=== PATIENT | female | born 1990 | race American Indian/Alaskan Native ===

== ENCOUNTER 2017-12-17 22:16 | Emergency (ER) | payer MEDICAID, OTHER ==
[2017-12-17 22:17] VITALS: BMI 32.3
[2017-12-18 01:26] LABS: BASO # 0.02 K/mm3 (0.0-2.0); BASO % 0.3 % (0.0-3.0); EOS # 0.1 (0.0-0.7); EOS % 1.6 % (1.5-5.0); GRAN # 4.31 (1.4-6.5); GRAN % 62.5 % (50.0-68.0); LYMPH % 28.9 % (22.0-35.0); MEAN CELL VOLUME 64.3 fl (80.0-105.0); MEAN CORPUSCULAR HEMOGLOBIN 17.1 pg (25.0-35.0); MEAN CORPUSCULAR HGB CONC 26.6 g/dl (31.0-37.0); MONO # 0.5 (0.1-0.6); MONO % 6.7 % (1.0-6.0); PLATELET COUNT 333 10^3/uL (120.0-450.0); RED CELL DISTRIBUTION WIDTH 21.8 % (11.5-14.5); WHITE BLOOD COUNT 6.9 10^3/ul (4.5-11.0)
--- NOTE | 2017-12-18 01:27 | ED PDOC ---
Arrival/HPI - General Chief Complaint: Female Genitourinary Time Seen by Provider: 12/17/17 23:44 Historian: Patient - History of Present Illness Narrative History of Present Illness (Text): 12/18/17 01:26 A 27 year old female presents to the emergency department complaining of vaginal bleeding for the past three weeks. Reports one in the past. Notes she hasn't taken a test recently. Patient is not taking any control pills. Patient denies any other complaints at this time. Time/Duration: Other (3 weeks) Symptom Onset: Sudden Symptom Course: Unchanged Activities at Onset: Rest Context: Home Past Medical History - Provider Review Nursing Documentation Reviewed: Yes - Infectious Disease Hx of Infectious Diseases: None - Tetanus Immunization Tetanus Immunization: Unknown - Past Medical History Past Medical History: No Previous - Hematological/Oncological Hx Blood Transfusions: No Hx Blood Transfusion Reaction: No - Musculoskeletal/Rheumatological Hx Falls: No - Psychiatric Hx Depression: No Hx Substance Use: No - Past Surgical History Past Surgical History: No Previous - Anesthesia Hx Anesthesia: No - Suicidal Assessment Feels Threatened In Home Enviroment: No Family/Social History - Physician Review Nursing Documentation Reviewed: Yes Family/Social History: No Known Family HX Smoking Status: Current Some Days Smoker Hx Alcohol Use: No Hx Substance Use: No Hx Substance Use Treatment: No Allergies/Home Meds Allergies/Adverse Reactions: Allergies No Known Allergies Allergy (Verified 12/17/17 23:42) Review of Systems - Physician Review All systems were reviewed & negative as marked: Yes - Review of Systems Constitutional: absent: Fevers Genitourinary Female: Vaginal Bleeding Physical Exam Vital Signs Reviewed: Yes Vital Signs Temp Pulse Resp BP Pulse Ox 12/18/17 04:19 99.2 F 90 17 106/63 12/18/17 03:56 98.5 F 91 H 17 113/68 12/17/17 23:44 98.4 F 87 18 106/54 L 99 Temperature: Afebrile Blood Pressure: Hypotensive Pulse: Regular Respiratory Rate: Normal Appearance: Positive for: Well-Appearing, Non-Toxic, Comfortable Pain Distress: None Mental Status: Positive for: Alert and Oriented X 3 - Systems Exam Head: Present: Atraumatic, Normocephalic Pupils: Present: PERRL Extroacular Muscles: Present: EOMI Conjunctiva: Present: Normal Mouth: Present: Moist Mucous Membranes Neck: Present: Normal Range of Motion Respiratory/Chest: Present: Clear to Auscultation, Good Air Exchange. No: Respiratory Distress, Accessory Muscle Use Cardiovascular: Present: Regular Rate and Rhythm, Normal S1, S2. No: Murmurs Abdomen: Present: Normal Bowel Sounds. No: Tenderness, Distention, Peritoneal Signs Genitourinary/Pelvic Exam: Present: Other (closed cervix; not blotted, pooling blood, dark red) Back: Present: Normal Inspection Upper Extremity: Present: Normal Inspection. No: Cyanosis, Edema Lower Extremity: Present: Normal Inspection. No: Edema Neurological: Present: GCS=15, CN II-XII Intact, Speech Normal Skin: Present: Warm, Dry, Normal Color. No: Rashes Psychiatric: Present: Alert, Oriented x 3, Normal Insight, Normal Concentration Medical Decision Making ED Course and Treatment: 12/18/17 01:25 Impression: A 27 year old female with vaginal bleeding. Plan: -- Urinalysis -- labs -- Reassess and disposition Prior Visits: Notes and results from previous visits were reviewed. Patient was last seen in the emergency department on 06/06/15 for evaluation of b/l lower back pain. Progress Notes: 12/18/17 03:[address] Gordon, who refused to accept patient, doesn't feel comfortable treating patient without INTERIOR DESIGN TEACHER support. Recommends patient to go to [facility]. 12/18/17 03:[address] Mora, CORPORATE PLANNING MANAGER, who stated patient doesn't have to be admitted to the hospital. Recommends patient to be discharged with Provera, as long US showed a dysfunctional uterine bleeding, and for patient to follow up with INTERIOR DESIGN TEACHER as outpatient. US Pelvis Complete, Transabdominal FINDINGS: Uterus: Measures 9.7 x 5.4 x 6.1 cm. Endometrial stripe is abnormally thickened , measuring 2.7 cm, and appears heterogeneous. There is mild increased flow/vascularity in the endometrial stripe, with no focal measurable masses seen. Multiple Nabothian cysts noted in the cervix. Right ovary: Within normal limits in appearance, containing multiple follicles. Measures 4.6 x 3.4 x 2.7 cm. Flow seen in the right ovary on color and Doppler imaging, with no evidence of torsion. Left ovary: Within normal limits in appearance, containing multiple follicles. Measures 4.0 x 3.3 x 3.4 cm. Flow seen in the left ovary on color and Doppler imaging, with no evidence of torsion. Cul-de-sac: No free fluid. IMPRESSION: Thickened, heterogeneous endometrium. This could be due to blood products/clot in the endometrial canal. Mild increased flow in the endometrium. This finding can be seen with an endometrial polyp. If the patient is , retained products of conception could also have this appearance. Findings require clinical correlation. Normal ovaries. See above for remaining findings. Dictated and Authenticated by: Davida Knott MD 12/18/2017 4:00 AM Eastern Time ([place] & [place]) - Lab Interpretations Lab Results: 12/18/17 00:58 12/18/17 00:58 Lab Results 12/18/17 01:45: Blood Type Confirm O POSITIVE 12/18/17 00:58: Blood Type O POSITIVE, Antibody Screen Negative, Crossmatch See Detail, BBK History Checked No verified bt 12/18/17 00:58: Beta HCG, Quant < 2.39 12/18/17 00:58: Sodium 139, Potassium 4.3, Chloride 107, Carbon Dioxide 25, Anion Gap 12, BUN 14, Creatinine 0.8, Est GFR ( Amer) > 60, Est GFR (Non- Af Amer) > 60, Random Glucose 89, Calcium 8.8, Total Bilirubin 0.4, AST 33, ALT 22, Alkaline Phosphatase 80, Total Protein 7.4, Albumin 3.7, Globulin 3.7, Albumin/Globulin Ratio 1.0 L 12/18/17 00:58: Urine Color Red, Urine Appearance Sl cloudy, Urine pH 7.0, Ur Specific [place] 1.025, Urine Protein 100 H, Urine Glucose (UA) Negative, Urine Ketones Negative, Urine Blood Large H, Urine Nitrate Negative, Urine Bilirubin Negative, Urine Urobilinogen 0.2, Ur Leukocyte Esterase Negative, Urine RBC Tntc , Urine WBC 1 - 3, Ur Epithelial Cells 0 - 2, Urine HCG, Qual Negative 12/18/17 00:58: PT 12.3, INR 1.08 12/18/17 00:58: WBC 6.9, RBC 3.39 L, Hgb 5.8 L*, Hct 21.8 L, MCV 64.3 L, MCH 17.1 L, MCHC 26.6 L, RDW 21.8 H, Plt Count 333, Gran % 62.5, Lymph % (Auto) 28.9 , [place] % (Auto) 6.7 H, Eos % (Auto) 1.6, Baso % (Auto) 0.3, Gran # 4.31, Lymph # 2.0, [place] # 0.5, Eos # 0.1, Baso # 0.02 I have reviewed the lab results: Yes - RAD Interpretation Radiology Orders: 12/18/17 01:54 TRANSVAGINAL [US] Stat - Medication Orders Current Medication Orders: Discontinued Medications Medroxyprogesterone Acetate (Provera) 10 mg PO ONCE ONE Stop: 12/18/17 04:13 - PA / AVIATION ORDNANCE OFFICER / Resident Statement MD/DO has reviewed & agrees with the documentation as recorded. - Scribe Statement The provider has reviewed the documentation as recorded by the Gauravibaye Wesley Provider Scribe Attestation: All medical record entries made by the Scribe were at my direction and personally dictated by me. I have reviewed the chart and agree that the record accurately reflects my personal performance of the history, physical exam, medical decision making, and the department course for this patient. I have also personally directed, reviewed, and agree with the discharge instructions and disposition. Disposition/Present on Arrival - Present on Arrival Any Indicators Present on Arrival: No History of DVT/PE: No History of Uncontrolled Diabetes: No Urinary Catheter: No History of Decub. Ulcer: No History Surgical Site Infection Following: None - Disposition Have Diagnosis and Disposition been Completed?: Yes Diagnosis: Dysfunctional uterine bleeding, Profound anemia Disposition: HOME/ ROUTINE Disposition Time: 06:30 Patient Plan: Discharge Condition: IMPROVED Discharge Instructions (ExitCare): Menstruation (ED), Anemia (ED) Additional Instructions: Letha You have to see your Speech Pathology Supervisor today or tomorrow. Return to us if any problems. Take the Provera daily for the next ten days. Pernell- Dr. Farhat Rm Prescriptions: Medroxyprogesterone Acetate [Provera] 10 mg PO DAILY #10 tab Referrals: Ilia Hernandez MD [Primary Care Provider] - Follow up with primary Forms: Telepathy ([place])
[2017-12-18 01:36] LABS: HEMOGLOBIN 5.8 g/dL (12.0-16.0)
[2017-12-18 01:37] LABS: INR 1.08 (0.93-1.08); PROTHROMBIN TIME 12.3 SECONDS (9.4-12.5)
[2017-12-18 01:41] LABS: URINE BILIRUBIN NEGATIVE (NEGATIVE); URINE BLOOD LARGE (NEGATIVE); URINE GLUCOSE (UA) NEGATIVE (NEGATIVE); URINE LEUKOCYTE ESTERASE NEGATIVE Leu/uL (NEGATIVE); URINE NITRATE NEGATIVE (NEGATIVE); URINE PROTEIN 100 mg/dL (<30 mg/dL); URINE UROBILINOGEN 0.2 E.U./dL (<1 E.U./dL)
[2017-12-18 01:42] LABS: URINE APPEARANCE SL CLOUDY (CLEAR); URINE COLOR RED (YELLOW)
[2017-12-18 01:44] LABS: ALBUMIN 3.7 g/dL (3.0-4.8); ALT/SGPT 22 U/L (7-56); AST/SGOT 33 U/L (14-36); BLOOD UREA NITROGEN 14 mg/dL (7-21); CALCIUM 8.8 mg/dL (8.4-10.5); GFR AFRICAN-AMERICAN > 60; GFR NON-AFRICAN AMERICAN > 60; HCG,QUALITATIVE URINE NEGATIVE (NEGATIVE)
[2017-12-18 01:46] LABS: URINE RBC TNTC /hpf (0-2)
[2017-12-18 01:47] LABS: URINE EPITHELIAL CELLS 0 - 2 /hpf (0-5)
--- NOTE | 2017-12-18 04:01 | US ---
EXAM: US Pelvis Complete, Transabdominal US Pelvis, Transvaginal EXAM DATE/TIME: 12/18/2017 1:54 AM CLINICAL HISTORY: 27 years old, female; Pain; Pelvic pain; Patient HX: Bleeding since 11/29; Additional info: Heavy vaginal bleeding TECHNIQUE: Real-time transabdominal and transvaginal pelvic ultrasound (complete) with image documentation. Transvaginal imaging was used for better evaluation of the endometrium and adnexa. COMPARISON: No relevant prior studies available. FINDINGS: Uterus: Measures 9.7 x 5.4 x 6.1 cm. Endometrial stripe is abnormally thickened, measuring 2.7 cm, and appears heterogeneous. There is mild increased flow/vascularity in the endometrial stripe, with no focal measurable masses seen. Multiple Nabothian cysts noted in the cervix. Right ovary: Within normal limits in appearance, containing multiple follicles. Measures 4.6 x 3.4 x 2.7 cm. Flow seen in the right ovary on color and Doppler imaging, with no evidence of torsion. Left ovary: Within normal limits in appearance, containing multiple follicles. Measures 4.0 x 3.3 x 3.4 cm. Flow seen in the left ovary on color and Doppler imaging, with no evidence of torsion. Cul-de-sac: No free fluid. IMPRESSION: Thickened, heterogeneous endometrium. This could be due to blood products/clot in the endometrial canal. Mild increased flow in the endometrium. This finding can be seen with an endometrial polyp. If the patient is , retained products of conception could also have this appearance. Findings require clinical correlation. Normal ovaries. See above for remaining findings.
[2017-12-18 04:13] LABS: RBC 3.39 10^6/uL (3.5-6.1)
[2017-12-18 06:47] VITALS: O2SAT 100
[2017-12-18 07:26] VITALS: BP 137/77; PULSE 86; RESP 16; TEMP 98.5
[2017-12-18 07:29] LABS: BASO # 0.05 K/mm3 (0.0-2.0); BASO % 0.6 % (0.0-3.0); EOS # 0.2 (0.0-0.7); EOS % 2.1 % (1.5-5.0); GRAN # 4.88 (1.4-6.5); GRAN % 63.3 % (50.0-68.0); LYMPH # 2.1 (1.2-3.4); LYMPH % 26.9 % (22.0-35.0); MEAN CELL VOLUME 67.8 fl (80.0-105.0); MEAN CORPUSCULAR HEMOGLOBIN 19.5 pg (25.0-35.0); MEAN CORPUSCULAR HGB CONC 28.8 g/dl (31.0-37.0); MONO # 0.6 (0.1-0.6); MONO % 7.1 % (1.0-6.0); PLATELET COUNT 305 10^3/uL (120.0-450.0); RBC 3.79 10^6/uL (3.5-6.1); RED CELL DISTRIBUTION WIDTH 23.8 % (11.5-14.5); WHITE BLOOD COUNT 7.7 10^3/ul (4.5-11.0)
[2017-12-18 07:34] LABS: HEMOGLOBIN 7.4 g/dL (12.0-16.0)
== END 2017-12-18 07:27 | disposition home or self-care (01) ==
LOC: ED 22:16
DX: N93.8 Other specified abnormal uterine and vaginal bleeding (principal); D64.9 Anemia, unspecified
CPT/HCPCS: 36430; 76830; 80053; 81001; 84702; 84703; 85025; 85610; 86850; 86900; 86920; 99283; P9016

== ENCOUNTER 2018-02-06 21:18 | Emergency (ER) | payer MEDICAID, OTHER ==
[2018-02-06 21:19] VITALS: BMI 32.3
[2018-02-06 21:24] VITALS: BP 108/69; PULSE 91; RESP 18; TEMP 98.3; O2SAT 99
--- NOTE | 2018-02-06 21:51 | ED PDOC ---
Arrival/HPI - General Chief Complaint: Abdominal Pain Time Seen by Provider: 02/06/18 21:30 Historian: Patient - History of Present Illness Narrative History of Present Illness (Text): 02/06/18 21:48 A 27 year old female, who denies any past medical history, presents to the emergency department complaining of abdominal pain for 2 days. Patient reports one episode of non-bilious non-bloody vomiting. Patient denies any fever, chills , diarrhea, urinary symptoms, chest pain, shortness of breath or any other complaints. Patient states her last menstrual period was 1.5 months ago. Time/Duration: Other (2 days) Symptom Course: Unchanged Quality: Other Context: Home Past Medical History - Provider Review Nursing Documentation Reviewed: Yes - Infectious Disease Hx of Infectious Diseases: None - Tetanus Immunization Tetanus Immunization: Unknown - Past Medical History Past Medical History: No Previous - Hematological/Oncological Hx Blood Transfusions: No Hx Blood Transfusion Reaction: No - Musculoskeletal/Rheumatological Hx Falls: No - Psychiatric Hx Depression: No Hx Substance Use: No - Past Surgical History Past Surgical History: No Previous - Anesthesia Hx Anesthesia: No - Suicidal Assessment Feels Threatened In Home Enviroment: No Family/Social History - Physician Review Nursing Documentation Reviewed: Yes Family/Social History: No Known Family HX Smoking Status: Never Smoked Hx Alcohol Use: Yes Frequency of alcohol use: Socially Hx Substance Use: No Hx Substance Use Treatment: No Allergies/Home Meds Allergies/Adverse Reactions: Allergies No Known Allergies Allergy (Verified 12/17/17 23:42) Home Medications: Home Meds Medication Instructions Recorded Confirmed No Known Home Med 02/06/18 02/06/18 Review of Systems - Physician Review All systems were reviewed & negative as marked: Yes - Review of Systems Constitutional: absent: Fevers, Night Sweats Respiratory: absent: SOB Cardiovascular: absent: Chest Pain Gastrointestinal: Abdominal Pain, Vomiting. absent: Diarrhea Genitourinary Female: absent: Dysuria, Frequency, Hematuria Physical Exam Vital Signs Reviewed: Yes Vital Signs Temp Pulse Resp BP Pulse Ox 02/06/18 21:21 98.3 F 91 H 18 108/69 99 Temperature: Afebrile Blood Pressure: Normal Pulse: Tachycardic Respiratory Rate: Normal Appearance: Positive for: Well-Appearing, Non-Toxic, Comfortable Pain Distress: None Mental Status: Positive for: Alert and Oriented X 3 - Systems Exam Head: Present: Atraumatic, Normocephalic Pupils: Present: PERRL Extroacular Muscles: Present: EOMI Conjunctiva: Present: Normal Mouth: Present: Moist Mucous Membranes Neck: Present: Normal Range of Motion Respiratory/Chest: Present: Clear to Auscultation, Good Air Exchange. No: Respiratory Distress, Accessory Muscle Use Cardiovascular: Present: Regular Rate and Rhythm, Normal S1, S2. No: Murmurs Abdomen: Present: Tenderness (slight left adnexal tenderness), Normal Bowel Sounds. No: Distention, Peritoneal Signs Genitourinary/Pelvic Exam: Present: Other (slight left adnexal tenderness) Back: Present: Normal Inspection Upper Extremity: Present: Normal Inspection. No: Cyanosis, Edema Lower Extremity: Present: Normal Inspection. No: Edema Neurological: Present: GCS=15, CN II-XII Intact, Speech Normal Skin: Present: Warm, Dry, Normal Color. No: Rashes Psychiatric: Present: Alert, Oriented x 3, Normal Insight, Normal Concentration Medical Decision Making ED Course and Treatment: 02/06/18 21:48 Impression: A 27 year old female with abdominal pain. Patient notes 1 episode of vomiting. Plan: -- Reassess and disposition Progress Notes: 02/06/18 22:40 Patient left before treatment was completed. 02/11/18 00:54 - Scribe Statement The provider has reviewed the documentation as recorded by the Scribe Disposition/Present on Arrival - Present on Arrival Any Indicators Present on Arrival: No History of DVT/PE: No History of Uncontrolled Diabetes: No Urinary Catheter: No History of Decub. Ulcer: No History Surgical Site Infection Following: None - Disposition Have Diagnosis and Disposition been Completed?: Yes Diagnosis: Abdominal pain Disposition: LEFT W/O TREATMENT - ER ONLY Disposition Time: 22:30 Condition: STABLE Referrals: Ilia Hernandez MD [Primary Care Provider] - Follow up with primary Forms: E[employer] (Citizen [place])
== END 2018-02-06 22:10 | disposition left against medical advice (07) ==
LOC: ED 21:18
DX: R10.9 Unspecified abdominal pain (principal)